=== PATIENT | female | born 1985 | race Two or more races ===

== ENCOUNTER 2017-12-20 20:06 | Emergency (ER) | payer OTHER ==
[2017-12-20 20:32] VITALS: BP 128/80; PULSE 89; TEMP 98.1; BMI 34.7
[2017-12-20] MEDS ORDERED: RANITIDINE HCL 150 MG TABLET (FP) PO ONE (20:54)
[2017-12-20] MEDS ORDERED: diphenhydrAMINE HCL 25 MG CAPSULE (FP) PO ONE ×2 (20:54→20:55)
[2017-12-20] MEDS ORDERED: RANITIDINE HCL 150 MG TABLET (FP) ONE (20:55)
--- NOTE | 2017-12-20 21:20 | PDOC ---
History of Present Illness - General Chief Complaint: Rash Stated Complaint: RASH Time Seen by Provider: 12/20/17 20:34 History Source: Patient Exam Limitations: No Limitations - History of Present Illness Initial Comments: 12/20/17 21:17 32 y/o female presents to the ED with continual itching since this afternoon. Pt states unsure of cause but went to [facility] to seek treatment and received decadron injection and dph 25mg IM. Pt states took 25mg of dph 2 hrs ago along with 40mg of prednisone with continual s/s. Pt denies thraot swelling , itching, or worsening s/s. Timing/Duration: reports: this morning Severity: Yes: mild Location: reports: generalized Respiratory Risk Factors: reports: no cause identified Modifying Factors: improves with: scratching Associated Symptoms: reports: rash Past History - Travel Traveled outside of the country in the last 30 days: No - Past Medical History Allergies/Adverse Reactions: Allergies Allergy/AdvReac Type Severity Reaction Status Date / Time No Known Allergies Allergy Verified 12/20/17 20:26 Home Medications: Ambulatory Orders Diphenhydramine HCl 25 mg PO ASDIR 12/20/17 Prednisone [Deltasone] 20 mg PO ASDIR 12/20/17 COPD: No Diabetes: Yes (ore) - Suicide/Smoking/Psychosocial Hx Smoking History: Current some day smoker Information on smoking cessation initiated: No Patient Lives Alone: No Lives with/in: spouse/SO Review of Systems - Review of Systems Able to Perform ROS?: Yes Constitutional: No: Symptoms Reported Respiratory: No: Symptoms reported ABD/GI: No: Symptoms Reported, Nausea Musculoskeletal: No: Symptoms Reported Integumentary: Yes: Pruritus, Rash Neurological: No: Dizziness *Physical Exam - Vital Signs Last Vital Signs Temp Pulse Resp BP Pulse Ox 98.1 F 89 20 128/80 99 12/20/17 20:30 12/20/17 20:30 12/20/17 20:30 12/20/17 20:30 12/20/17 20:30 - Physical Exam General Appearance: Yes: Nourished, Appropriately Dressed. No: Apparent Distress HEENT: positive: EOMI, ALBERTO, Normal Voice, Pharynx Normal (uvula midline, no erythema). negative: Muffled/Hoarse voice Respiratory/Chest: positive: Lungs Clear, Normal Breath Sounds. negative: Respiratory Distress, Accessory Muscle Use, Stridor, Wheezing Cardiovascular: positive: Regular Rhythm, Regular Rate Integumentary: positive: Hives (to torso, arms, and lower neck) Neurologic: positive: Normal Mood/Affect, Motor Strength 5/5 (ambulatory) ED Treatment Course - Medications Given in the ED: ED Medications Discontinued Medications Generic Name Dose Route Start Last Admin Trade Name Freq PRN Reason Stop Dose Admin Diphenhydramine HCl 25 mg 12/20/17 20:54 12/20/17 21:03 Benadryl - PO 12/20/17 20:55 25 mg ONCE ONE Administration Ranitidine HCl 150 mg 12/20/17 20:54 12/20/17 21:03 Zantac - PO 12/20/17 20:55 150 mg ONCE ONE Administration Medical Decision Making - Medical Decision Making 12/20/17 21:20 Pt with allergic dermatitis. Pt on exam with no airway compromise. Pt ordered for an additional dph 25mg along with zantac. Will continue to observe. 12/20/17 21:36 Pt with improvment of allergic dermatitis to torso and neck. Discharge home with zanatc and recommendations to take 50 mg of dph *DC/Admit/Observation/Transfer Diagnosis at time of Disposition: Allergic dermatitis - Discharge Dispostion Disposition: HOME Condition at time of disposition: Improved - Referrals Referrals: Yo Blackman [Primary Care Provider] - - Patient Instructions Printed Discharge Instructions: DI for General Allergic Reactions Additional Instructions: Please take zantac as prescribed. Please increase Benadryl to 50mg every 8 hrs. Return to the ED if symptoms worsen. - Post Discharge Activity
== END 2017-12-20 22:04 | disposition home or self-care (01) ==
LOC: JERFT 20:06
DX: L25.9 Unspecified contact dermatitis, unspecified cause (principal)
CPT/HCPCS: 99281-25

== ENCOUNTER 2018-10-06 09:49 | Emergency (ER) | payer OTHER ==
[2018-10-06 10:25] VITALS: BP 106/66; PULSE 68; TEMP 98; BMI 28.7
[2018-10-06] MEDS ORDERED: KETOROLAC TROMETHAMINE 60 MG/2 ML VIAL IM ONE (10:55)
[2018-10-06] MEDS ORDERED: KETOROLAC TROMETHAMINE 60 MG/2 ML VIAL ONE (10:59)
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
== END 2018-10-06 12:04 | disposition home or self-care (01) ==
LOC: JERFT 09:49
PROC: 3E0233Z Introduction of Anti-inflammatory into Muscle, Percutaneous Approach (ICD-10-PCS; principal; 2018-10-06)
DX: M54.5 Low back pain (principal); S13.4XXA Sprain of ligaments of cervical spine, initial encounter; V43.52XA Car driver injured in collision with other type car in traffic accident, initial encounter; Y93.89 Activity, other specified; Y92.410 Unspecified street and highway as the place of occurrence of the external cause
CPT/HCPCS: 72050-TC-FY; 72100-TC-FY; 99281-25

== ENCOUNTER 2019-08-07 17:26 | Emergency (ER) | payer OTHER ==
--- NOTE | 2019-08-07 18:11 | PDOC ---
Rapid Medical Evaluation Chief Complaint: Wound Time Seen by Provider: 08/07/19 18:06 Medical Evaluation: Allergies Allergy/AdvReac Type Severity Reaction Status Date / Time ibuprofen AdvReac Verified 08/07/19 18:03 08/07/19 18:06 I have performed a brief in-person evaluation of this patient. The patient presents with a chief complaint of: R thigh abscess and vaginal lesions s/p waxing yesterday. Also c/o fever/chills, no NVD. No abdominal pain (+)h/o abscesses 7 times, never been checked for MRSA. Unknown h/o DM Pertinent physical exam findings: Multiple pustules to labia majora and mons pubis, R thigh posterior abscess. Temp low grade fever 99. I have ordered the following: Rectal temperature, CBC, CMP, fingerstick The patient will proceed to the ED for further evaluation. Discharge Disposition - Diagnosis Abscess - Referrals - Patient Instructions - Post Discharge Activity
[2019-08-07 18:19] VITALS: BMI 26.4
--- NOTE | 2019-08-07 18:24 | PDOC ---
History of Present Illness - General Chief Complaint: Wound Stated Complaint: BLISTERS Time Seen by Provider: 08/07/19 18:06 - History of Present Illness Initial Comments: The pt is a 34F w/ no reported PMH who presents for evaluation of 1 day of fay- vaginal blisters s/p waxing yesterday. The pt reports that she has a burning sensation where the waxing was performed, and that the lesions started s/p waxing yesterday. She states she experienced them once before in the past after waxing as well. She reports associated subjective fevers today. She has not tried taking anything for the pain. She denies N/V/C/D, dysuria, hematuria, blood in her stool, vaginal bleeding/ discharge, or abdominal pain 08/07/19 19:42 Past History - Past Medical History Allergies/Adverse Reactions: Allergies Allergy/AdvReac Type Severity Reaction Status Date / Time ibuprofen AdvReac Verified 08/07/19 18:03 Home Medications: Ambulatory Orders Bacitracin - [Bacitracin Topical Ointment -] 1 applic TP DAILY #1 tube 08/07/19 Cephalexin Monohydrate [Keflex -] 500 mg PO BID 5 Days #10 capsule 08/07/19 COPD: No Diabetes: Yes (ore) - Surgical History Abdominal Surgery: Yes (bariactric surg) - Psycho Social/Smoking Cessation Hx Smoking History: Never smoked Review of Systems - Review of Systems Able to Perform ROS?: Yes Comments:: GENERAL/CONSTITUTIONAL: No chills. No weakness HEAD, EYES, EARS, NOSE AND THROAT: No change in vision. No change in hearing. No sore throat CARDIOVASCULAR: No chest pain or shortness of breath RESPIRATORY: Denies cough, hemoptysis GASTROINTESTINAL: No nausea, vomiting, diarrhea or constipation GENITOURINARY: No dysuria, frequency, or change in urination MUSCULOSKELETAL: No joint or muscle swelling or pain. No neck or back pain SKIN: Fay-vaginal blisters NEUROLOGIC: No headache, vertigo, loss of consciousness, or change in strength/ sensation ENDOCRINE: No increased thirst. No abnormal weight change HEMATOLOGIC/LYMPHATIC: No anemia, easy bleeding, or history of blood clots ALLERGIC/IMMUNOLOGIC: No hives or skin allergy 08/07/19 18:24 Is the patient limited [place] proficient: No *Physical Exam - Vital Signs Last Vital Signs Temp Pulse Resp BP Pulse Ox 99 F 83 18 105/78 99 08/07/19 18:12 08/07/19 18:12 08/07/19 18:12 08/07/19 18:12 08/07/19 18:12 - Physical Exam Comments: GENERAL: Awake, alert, and oriented to person/place/time, in no acute distress HEAD: No signs of trauma, normocephalic, atraumatic EYES: PERRLA, EOMI, sclera anicteric, conjunctiva clear ENT: Hearing grossly normal, nares patent, oropharynx clear without exudates. Moist mucosa LUNGS: No distress, speaks in full sentences, clear to auscultation bilaterally HEART: Regular rate and rhythm, normal S1 and S2, no murmurs appreciated, peripheral pulses normal and equal bilaterally ABDOMEN: Soft, nontender, normoactive bowel sounds. No guarding, no rebound EXTREMITIES: Normal inspection, Normal range of motion, no edema. No clubbing or cyanosis NEUROLOGICAL: Cranial nerves II through XII grossly intact. Normal speech, no focal sensorimotor deficit SKIN: Multiple supra-vaginal pus-filled vesicles w/o surrounding cellulitis or underlying induration 08/07/19 18:24 08/07/19 19:46 ED Treatment Course - LABORATORY CBC & Chemistry Diagram: 08/07/19 18:24 08/07/19 18:24 - ADDITIONAL ORDERS Additional order review: Laboratory Results 08/07/19 18:09 POC Glucometer 103 08/07/19 18:09 POC Glucometer 103 Medical Decision Making - Medical Decision Making The pt is a 34F w/ no reported PMH who presents for evaluation of supra-vaginal blisters 1 day s/p waxing likely 2/2 thermal injury ED Course Labs sent from [facility] No leukocytosis No anemia Lytes unremarkable LFTs wnl No PHIL Pt given Tylenol for pain relief 08/07/19 20:04 Plan for D/C w/ PCP f/u Rx for keflex and bacitracin sent to pt's pharmacy Discharge instructions and return precautions given Pt in agreement and verbalized understanding Dispo: home 08/07/19 20:14 Discharge - Discharge Information Problems reviewed: Yes Clinical Impression/Diagnosis: Blisters of multiple sites Condition: Stable Disposition: HOME - Admission No - Additional Discharge Information Prescriptions: Bacitracin - [Bacitracin Topical Ointment -] 1 applic TP DAILY #1 tube Cephalexin Monohydrate [Keflex -] 500 mg PO BID 5 Days #10 capsule - Follow up/Referral Referrals: [facility] [place] [facility] [Provider Group] - Patient Discharge Instructions Patient Printed Discharge Instructions: DI for [place], DI for Blisters Additional Instructions: You were seen in the Emergency Department for evaluation of blisters. For care you may place warm compresses for 30 minutes at a time. Wash the area daily with soap and water, pat dry, and place Neosporin/Bacitracin on any open lesions and Keflex, take as directed. A prescription for the antibiotic cream was sent to your pharmacy. Review the handout provided at discharge. Follow up with your primary care provider or referral given within a week. You may take Tylenol 650mg every 6 hours as needed. Return to the Emergency Department if you develop fevers despite Tylenol use, worsening pain/redness, induration to the area, chest pain, trouble breathing, worsening symptoms, or any new/ concerning symptoms. - Post Discharge Activity
[2019-08-07 18:39] LABS: BASO % 0.7 % (0-2.0); EOS % 0.4 % (0-4.5); HEMOGLOBIN 12.4 GM/dL (10.7-15.3); LYMPH % 18.9 % (8-40); MCH 29.4 pg (25.7-33.7); MCHC 33.5 g/dl (32.0-36.0); MEAN CELL VOLUME 87.8 fl (80-96); MEAN PLT VOLUME 7.9 fl (7.5-11.1); MONO % 7.5 % (3.8-10.2); NEUT % 72.5 % (42.8-82.8); PLATELET COUNT 278 K/MM3 (134-434); RBC 4.22 M/mm3 (3.60-5.2); WHITE BLOOD COUNT 9.2 K/mm3 (4.0-10.0)
[2019-08-07 19:03] LABS: ALBUMIN 3.9 g/dl (3.4-5.0); BILIRUBIN,TOTAL 0.4 mg/dL (0.2-1); BLOOD UREA NITROGEN 10.4 mg/dL (7-18); CALCIUM 8.7 mg/dL (8.5-10.1); CREATININE 0.8 mg/dL (0.55-1.3); POTASSIUM 4.3 mmol/L (3.5-5.1)
[2019-08-07] MEDS ORDERED: ACETAMINOPHEN 325 MG TABLET (FP) ONE (19:06)
[2019-08-07] MEDS ORDERED: ACETAMINOPHEN 325 MG TABLET (FP) PO ONE (19:45)
[2019-08-07] MEDS ORDERED: DIPHTH,PERTUSS(ACELL),TET 0.5 ML DISP.SYRIN IM ONE ×2 (20:11→20:19)
--- NOTE | 2019-08-07 20:26 | PDOC ---
Attending Attestation - Resident Resident Name: Marvin Dalton - ED Attending Attestation I have performed the following: I have examined & evaluated the patient, The case was reviewed & discussed with the resident, I agree w/resident's findings & plan - HPI HPI: 08/07/19 20:44 Pt had a vaginal area wax; now developed a folliculitis. Pt states that she had a similar episode the last time she had a waxing for hair removal a few months ago. Pt has no fever or chills. She cannot recall the last time she had a tdap vaccine and she has no abx allergies. - Physicial Exam PE: 08/07/19 20:45 Agree with resident exam. Pt has a folliculitis on her vaginal trigone with small discrete pustules 1-3mm in diameter. Pt has somw underlying redness, but no warmth and no lymphangitis and no cellulitis or systemic fever. - Medical Decision Making 08/07/19 20:25 Pt will be given keflex; tdap and bacitracin ointment and she can follow up [facility] for her folliculitis 08/07/19 21:07 Pt is not nauseous. She states that she had bariatric surgery and that she is starving. I gave her a lunch bag from the hospital ER and she is able to eat. Pt is doing well. She is stable for discharge.
[2019-08-07] MEDS ORDERED: CEPHALEXIN MONOHYDRATE 500 MG CAPSULE (UD) ONE (20:44)
[2019-08-07] MEDS ORDERED: BACITRACIN 15 GM TUBE TOPICAL OINTMENT ONE (20:45)
[2019-08-07] MEDS ORDERED: CEPHALEXIN MONOHYDRATE 500 MG CAPSULE (UD) PO ONE (20:51)
[2019-08-07 20:52] VITALS: BP 106/78; PULSE 74; TEMP 98.7
== END 2019-08-07 20:50 | disposition home or self-care (01) ==
LOC: JER 17:26
PROC: 3E0234Z Introduction of Serum, Toxoid and Vaccine into Muscle, Percutaneous Approach (ICD-10-PCS; principal; 2019-08-07)
DX: L73.8 Other specified follicular disorders (principal); L01.02 Bockhart's impetigo
CPT/HCPCS: 36415; 80053; 82962; 85025; 90715; 96372; 99282-25

== ENCOUNTER 2023-03-20 19:13 | Emergency (ER) | payer OTHER ==
[2023-03-20 19:29] VITALS: BP 133/73; PULSE 71; RESP 18; TEMP 98; BMI 33.4
[2023-03-20 20:47] LABS: INR 1.12 (0.83-1.09)
[2023-03-20 20:56] LABS: POTASSIUM 4.2 mmol/L (3.5-5.1)
[2023-03-20 20:57] LABS: CALCIUM 8.9 mg/dL (8.5-10.1)
[2023-03-20 20:58] LABS: BLOOD UREA NITROGEN 8.2 mg/dL (7-18)
[2023-03-20 21:01] LABS: CREATININE 0.9 mg/dL (0.55-1.3)
[2023-03-20 21:05] LABS: N-TERMINAL BNP 50.6 pg/ml (5-125)
== END 2023-03-20 21:36 | disposition home or self-care (01) ==
LOC: JER 19:13
DX: R22.43 Localized swelling, mass and lump, lower limb, bilateral (principal)
CPT/HCPCS: 36415; 80048; 83880; 85610; 93970-TC; 99284-25